=== PATIENT | male | born 1950 | race Caucasian/White ===

== ENCOUNTER 2017-03-08 19:13 | Inpatient (IN) | payer OTHER, BC, MEDICARE ==
--- NOTE | ~2017-03-08 | HP ---
History And Physical [address] [address] NAME: MARISOL ORNELAS II : 46 STATUS : ADM IN PAT#: [id number] AGE: 66 ADM/REG DATE : 03/08/17 MR#: [id number] REPORT SERV DATE: 03/09/17 DICTATED BY: SARTHAK OLIVAS DATE: 03/09/17 REPORT STATUS : Draft TRANSCRIBED BY: MODKinga DATE: 03/09/17 DATE OF ADMISSION: 03/08/2017 CHIEF COMPLAINT: A 66-year-old male presenting with bilateral diabetic foot ulcers and redness and pain in his legs. HISTORY OF PRESENT ILLNESS: The patient's history was obtained through careful interview with the patient and , coupled with review of [facility] and [facility] medical records. The patient for several years has been dealing with diabetic foot ulcers. He has had bilateral foot operations and is followed chronically by Podiatry. About 9 days ago, he had some calluses removed from ulcers on bilateral feet. But it was until this afternoon that he developed fevers, chills, nausea, and an episode of vomiting and was seems to be heat and slight redness, particularly over his right leg. He describes some right leg discomfort, aching quality and pressure-like quality, 6/10 in severity. No lightheadedness. No confusion. No palpitations. No shortness of breath. No chest pain. He claims his diabetes is under good control with dietary control only, and blood sugars always under 200. REVIEW OF SYSTEMS: Otherwise, a 14-point review of systems was obtained and was negative. PAST MEDICAL HISTORY: 1. Atrial fibrillation, followed by Dr. Velez. 2. Diabetes. 3. Colon polyps seen by Dr. Shayla Marshall. 4. Chronic kidney disease, stage III. Baseline creatinine of 1.4 to 1.7. 5. Gout. PAST SURGICAL HISTORY: 1. UPPP. 2. Fissurectomy. 3. Left shoulder surgery. 4. Oral surgery. 5. Bilateral foot surgery. ALLERGIES: NO KNOWN DRUG ALLERGIES. SOCIAL HISTORY: He is . Works for the [employer]. Lives in [facility] History And Physical [address] [address] NAME: MARISOL ORNELAS II : 46 STATUS : ADM IN PAT#: [id number] AGE: 66 ADM/REG DATE : 03/08/17 MR#: [id number] REPORT SERV DATE: 03/09/17 DICTATED BY: SARTHAK OLIVAS DATE: 03/09/17 REPORT STATUS : Draft TRANSCRIBED BY: CHEY DATE: 03/09/17 [place]. Has children, 6 grandchildren. No tobacco abuse history. No alcohol use. FAMILY HISTORY: Both mother and father from colon cancer. Father had diabetes. Three out of four of his grandparents had heart disease. CURRENT MEDICATIONS: Include allopurinol 100 mg p.o. daily, Norvasc 10 mg p.o. daily, eye drops, aspirin 81 mg p.o. daily, chlorthalidone 12.5 mg p.o. daily, TriCor 145 mg p.o. daily, magnesium, multivitamin, omeprazole 40 mg p.o. daily, Zocor 80 mg p.o. daily, sotalol 120 mg p.o. b.i.d., testosterone every month, vitamin B6, Diovan 320 mg p.o. daily, and Coumadin 4.5 mg p.o. daily. PHYSICAL EXAMINATION: VITAL SIGNS: Temperature 101.8, pulse 109, blood pressure 137/72, respiratory rate 16, and O2 saturation 94% on room air. GENERAL: A pleasant, cooperative male. No evidence of acute distress. HEENT: Pupils equal, round, and reactive to light. No conjunctival pallor. No scleral icterus. Nares are patent. Oropharynx: Clear of obstruction. Moist mucous membranes. NECK: Trachea midline. No thyromegaly. LYMPH: No cervical lymphadenopathy. No supraclavicular lymphadenopathy. No inguinal lymphadenopathy. RESPIRATORY: Clear to auscultation at bases. No wheezes, rales, or rhonchi. Normal respiratory effort. CARDIOVASCULAR: Tachycardic, regular rhythm. No murmurs, rubs, or gallops. No current extremity edema is appreciated. ABDOMEN: Soft, nontender, nondistended. Normal bowel sounds auscultated throughout. No organomegaly. DERMATOLOGICAL: The patient only has mild erythema of his right taylor and surrounding his right diabetic foot ulcer at the base of his foot but only minimal heat. No significant tenderness. No purulent drainage. No leg ulceration. The patient also has some slight cyanotic changes at the tips of his feet bilaterally. No pallor. Warm and dry extremities. PSYCHIATRIC: Normal affect. Good mood. Alert and oriented x3. LABORATORY DATA: White blood cell count 12.1, hemoglobin 17, hematocrit 52, platelets 223. Sodium 137, potassium 4.1, chloride 101, bicarb 29, BUN 24, creatinine 1.8, glucose 109. Urinalysis negative for infection. STUDIES: Chest x-ray by my own evaluation shows no acute cardiopulmonary process. ASSESSMENT AND PLAN: 1. Sepsis. Fever of 101.8, tachycardia, white blood cell count of 12.1. Check blood cultures. Placed on IV antibiotics. 2. Bilateral diabetic foot ulcer infections. Check an arterial Doppler ultrasound. Check an MRI to rule out osteomyelitis. Placed on IV vancomycin, IV Zosyn for now. No drainage from the ulcers to culture. We will obtain a Wound Care consult. Check an ESR. 3. Chronic kidney disease, stage III. 4. Diabetes. Check hemoglobin A1c. Place on sliding scale insulin. History And Physical [address] [address] NAME: MARISOL ORNELAS II : 46 STATUS : ADM IN [facility]#: [id number] AGE: 66 ADM/REG DATE : 03/08/17 MR#: [id number] REPORT SERV DATE: 03/09/17 DICTATED BY: SARTHAK OLIVAS DATE: 03/09/17 REPORT STATUS : Draft TRANSCRIBED BY: CHEY DATE: 03/09/17 5. Atrial fibrillation. Check telemetry. Check INR. The patient is on Coumadin. FELICITASL/CHEY Sarthak Olivas M.D. / [id number] CC: Ang Martell M.D. Ondrej J Lisy, M.D.
--- NOTE | ~2017-03-08 | DS ---
Discharge Summary [facility] [address] [place]. [address] NAME: MARISOL ORNELAS II : 46 STATUS : DIS IN PAT#: [id number] AGE: 66 ADM/REG DATE : 03/08/17 MR#: [id number] REPORT SERV DATE: 03/11/17 DICTATED BY: DATE: REPORT STATUS : Draft TRANSCRIBED BY: MODL DATE: 03/10/17 ADMISSION DATE: 03/08/2017 DISCHARGE DATE: 03/10/2017 [facility] CONSULTANTS: Katerin Linares D.P.M, of podiatry. DISCHARGE DIAGNOSES: 1. Bilateral lower extremity cellulitis. 2. Bilateral plantar diabetic foot ulcers with no evidence of acute infection. 3. 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 4. Demand-related ischemia - no evidence of acute myocardial infarction. 5. Paroxysmal atrial fibrillation with subtherapeutic INR at admission and discharge. 6. History of hypertension - hypotensive here, with multiple recent outpatient medication up titrations. Diuretic held at discharge, amlodipine decreased for discharge. Recommend further ambulatory blood pressure monitoring. 7. Non-insulin dependent diabetes mellitus type 2 - uncontrolled with hemoglobin A1c of 7.3. The patient states intention for improved dietary compliance at discharge. 8. Sepsis present at admission, resolved. IMAGING AND DIAGNOSTICS: Included: 1. An MRI of bilateral lower extremity showing cellulitis, but no osteomyelitis. Degenerative changes of the first metatarsophalangeal joint on the left, with some tenosynovitis of the right hallucis longus tendon. 2. PA lateral chest x-ray, negative. 3. Arterial Dopplers negative for peripheral arterial disease. PERTINENT LABORATORIES: White blood cell count at admission 12.1, 5.3 at discharge. Hemoglobin values stable. Platelets normal. INR 1.6. Creatinine at admission 1.9, 1.97 at discharge. Blood glucose values ranging from 110 to 155. Liver enzymes normal. Lactate 1.4. Urinalysis negative. Sedimentation rate 6. BNP 290. Troponin values between 0.1 and 0.11. TSH normal. Hemoglobin A1c 7.3. Blood cultures x2 no growth at the time of discharge. BRIEF HISTORY: For full details, please see the previously dictated history of present illness by Dr. Jose Daniel Badillo. This is a 66-year-old white male with known diabetic foot ulcers bilaterally, followed outpatient by Dr. Linares. He had not had any recent debridement and had not noticed any recent increase in pain or drainage, but did develop bilateral redness of the legs with an associated fever of 101.8 degrees, tachycardia, and altered mental status and weakness. His brought him to the emergency department for evaluation, where he was found to be septic from bilateral lower extremity cellulitis. He was admitted to the Hospitalist Service for further management. HOSPITAL COURSE: The patient was placed on empiric vancomycin and Zosyn. He was placed on IV fluids. Blood cultures were obtained and showed no growth during the hospitalization. Discharge Summary [place] [address] [facility] [place]. [address] NAME: MARISOL ORNELAS II : 46 STATUS : DIS IN PAT#: [id number] AGE: 66 ADM/REG DATE : 03/08/17 MR#: [id number] REPORT SERV DATE: 03/11/17 DICTATED BY: DATE: REPORT STATUS : Draft TRANSCRIBED BY: MODL DATE: 03/10/17 Wound cultures were not obtained because the patient's wounds were not draining. Sedimentation rate was negative. MRI of bilateral feet was negative for osteomyelitis. Arterial Doppler showed no evidence of significant peripheral arterial disease The patient improved dramatically by the first hospital day, on that management, with no recurrence of fevers, decrease in the erythema of both legs, and downtrend in his white blood cell count. Podiatry was consulted to see him, to determine whether any surgical debridement was needed at present, or if outpatient followup would suffice, and also to provide some input into the discharge antibiotic regimen. Dr. Linares saw the patient on 03/10/2017, and did not believe that the wounds required any additional debridement at present because they appeared clean, with no increase in drainage. Podiatry recommended outpatient antibiotics to include clindamycin and renally dosed fluoroquinolone, with outpatient followup as scheduled on 03/22/2017. Other issues managed this admission included a subtherapeutic INR. INR has been 1.6 the majority of this admission despite increasing dose of Coumadin. The patient reports that he recently has had difficulty controlling his INR and that he has vacillated between being supratherapeutic and subtherapeutic. His INR is followed at the [facility]. No changes made in his current dose of Coumadin as he will be discharged on clindamycin and a fluoroquinolone, which could increase the INR. Therefore, he will need to follow up for an outpatient INR check on 03/15/2017. The patient also reports that his blood pressure medications had been up titrated recently. Specifically, his amlodipine was recently doubled and he was placed on chlorthalidone. Here in the hospital, his systolic blood pressure typically ranged from the upper 90s to 120s at the highest. In fact, his blood pressure medications had to be held on a few occasions because of hypotension. Therefore, his diuretic has been discontinued for discharge and his amlodipine decreased back to his home dose of 5 mg. 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 There may be some component of white coat hypertension. He is not currently in the habit of checking his blood pressure at home, but ambulatory blood pressure monitoring is recommended and he is instructed to check his blood pressure daily and keep a log for his next appointment with his primary care provider within one month, for further blood pressure medication adjustments. The patient's A1c was found to be elevated this admission at 7.3, which he reports as higher than usual for him. He recently has been diet controlled, and would like to attempt that again prior to initiation of oral agents. Again, he will follow up with his primary care provider about this. DISCHARGE INSTRUCTIONS: The patient is being discharged home in the care of his supportive with no specific activity restrictions. Although, he is not able to return to work unless he can do so sitting per Podiatry. He needs to adhere to an 1800 K calorie, ADA, cardiac diet for his comorbidities, and follow up with Dr. Christiano Linares, as scheduled on Discharge Summary [address] [place]. [address] NAME: MARISOL ORNELAS ROLAN : 46 STATUS : DIS IN PAT#: [id number] AGE: 66 ADM/REG DATE : 03/08/17 MR#: [id number] REPORT SERV DATE: 03/11/17 DICTATED BY: DATE: REPORT STATUS : Draft TRANSCRIBED BY: CHEY DATE: 03/10/17 03/22/2017. He needs to follow up at the [facility] for an INR check on 03/15/2017, and also needs to see his primary care provider within the month regarding his blood pressure readings and blood pressure medications. DISCHARGE MEDICATIONS: Include: 1. Allopurinol 100 mg p.o. at bedtime. 2. Amlodipine 5 mg p.o. daily. 3. Aspirin 81 mg p.o. daily. 4. Tricor 145 mg p.o. at bedtime. 5. Magnesium oxide 400 mg p.o. at bedtime. 6. Multivitamin one tablet p.o. at bedtime. 7. Prilosec 40 mg p.o. at bedtime. 8. Simvastatin 80 mg p.o. at bedtime. 9. Sotalol 120 mg p.o. twice a day. 10.Valsartan 320 mg p.o. q.p.m. 11.Warfarin 4.5 mg p.o. q.p.m. 12.Testosterone one shot every ten days. 13.Vitamin B6 one tablet p.o. at bedtime. 14.Artificial Tears one drop in each eye as needed for dryness. 15.Levaquin 750 mg p.o. every 48 hours x5 doses and clindamycin 300 mg p.o. q.6 hours for ten days. Thirty five minutes was spent in completion of the discharge summary. FLAVIO/CHEY Abdirahman Amaro M.D. / [id number] CC: Ang Gongora M.D. C. Jason Wamack, D.P.M. Ondrej J Lisy, M.D.
[~2017-03-08 19:13] MED LIST: ASA5GR PO; B6 PO; BETAPACE80 PO; CALCIUM PO; CALTRAT600 PO; CENTRUM SILVER PO; CENTRUM TAB1 TAB PO; DIOVAN HC2 PO; JANTOVEN5 MG; LOP25 PO; MAG-SR535 MG PO; MAGNESIUM PO; NORV5 PO; PRILO PO; PRILOSEC40 MG PO; TRICOR145 PO; VITAMIN B-625 MG PO; VITC500 PO; VOLTXR100 PO; Z100 PO; ZOCOR40 PO; ZOCOR5 MG PO
[2017-03-08 20:08] LABS: BASOPHILS 0.1 %; BASOPHILS ABSOLUTE 0.01 10/3/uL (0.0-0.16); EOSINOPHILS ABSOLUTE 0.12 10/3/uL (0.0-0.53); HEMOGLOBIN 17.4 g/dL (13.6-17.8); IMMATURE GRANULOCYTES 0.3 %; IMMATURE GRANULOCYTES ABSOLUTE 0.04 10/3/uL (0.0-0.11); LYMPHOCYTES 6.4 %; LYMPHOCYTES ABSOLUTE 0.78 10/3/uL (0.67-4.30); MEAN CORPUS HGB CONC 33.3 g/dL (32.0-36.0); MEAN CORPUSCULAR HEMOGLOB 28.4 pg (26.0-34.0); MEAN PLATELET VOLUME 10.2 fL (9.2-13.0); MONOCYTES ABSOLUTE 0.85 10/3/uL (0.21-1.20); NEUTROPHILS 85.2 %; NEUTROPHILS ABSOLUTE 10.34 10/3/uL (2.02-8.40); PLATELET COUNT 223 10/3/uL (150-400); RBC DISTRIBUTION WIDTH 14.6 % (12.0-16.0); RED CELL COUNT 6.13 10/6/uL (4.7-6.1)
[2017-03-08 20:10] LABS: ER CBC TAT 0 Hrs 07 Mins; HEMATOCRIT 52.2 % (40.0-51.0); MANUAL DIFF NO %; MEAN CORPUSCULAR VOLUME 85.2 fL (80-100); WHITE BLOOD CELLS 12.1 10/3/uL (4.5-10.5)
[2017-03-08 20:22] LABS: ALBUMIN 4.3 G/DL (3.5-5.0); ALKALINE PHOSPHATASE 38 U/L (45-117); BUN (BLOOD UREA NITROGEN) 24 MG/DL (6-23); CALCIUM, SERUM 9.5 MG/DL (8.5-10.4); CHLORIDE, SERUM 101 MMOL/L (96-112); CO2 (CARBON DIOXIDE) 29 MMOL/L (24-34); CREATININE 1.86 MG/DL (0.70-1.30); GFR AFRICAN AMERICAN 42 ML/MIN (>=60); GFR NON AFRICAN AMERICAN 36 ML/MIN (>=60); GLOBULIN 4.2 G/DL (2.5-4.1); GLUCOSE, SERUM 109 MG/DL (60-99); POTASSIUM, SERUM 4.1 MMOL/L (3.5-5.3); SGOT(AST) 19 U/L (5-40); SGPT(ALT) 25 U/L (5-65); SODIUM, SERUM 137 MMOL/L (135-148); TOTAL BILIRUBIN 0.8 MG/DL (0-1.2); TOTAL PROTEIN 8.5 G/DL (6.0-8.5)
[2017-03-08 20:25] LABS: ASCORBIC ACID (UR NOT ORDER) 20 (NEG); BILIRUBIN, URINE NEGATIVE (NEG); ER URINALYSIS TAT 0 Hrs 19 Mins; KETONE, URINE NEGATIVE (NEG); LEUKOCYTE ESTERASE(NOT OR NEG (NEG); NITRITE (URINE) NEG (NEG); WBC (NOT ORDERED) (RFLEX) 1 (0-5)
[2017-03-08] MEDS ORDERED: TESTOSTERONE INJ IM (23:04)
[2017-03-08] MEDS ORDERED: PRILOSEC40 MG PO (23:04)
[2017-03-08] MEDS ORDERED: Z100 PO (23:04)
[2017-03-08] MEDS ORDERED: ZOCOR80 MG PO (23:05)
[2017-03-08] MEDS ORDERED: DIOVAN320 MG PO (23:05)
[2017-03-08] MEDS ORDERED: TRICOR145 PO (23:05)
[2017-03-08] MEDS ORDERED: NORV10 PO (23:06)
[2017-03-08] MEDS ORDERED: VITAMIN B PO (23:06)
[2017-03-08] MEDS ORDERED: TEARS PURE OPH (23:06)
[2017-03-08] MEDS ORDERED: MULTIVITAMI1 PO (23:07)
[2017-03-08] MEDS ORDERED: JANTOVEN1 MG PO (23:07)
[2017-03-08] MEDS ORDERED: ASAB PO (23:07)
[2017-03-08] MEDS ORDERED: HYGROTON 25 MG25 MG PO (23:07)
[2017-03-08] MEDS ORDERED: BETAP120 PO (23:07)
[2017-03-08] MEDS ORDERED: MAGOX4 PO (23:07)
[2017-03-08 23:41] LABS: LACTATE 1.4 MMOL/L (0.3-2.4)
[2017-03-09 03:51] LABS: BASOPHILS 0.2 %; BASOPHILS ABSOLUTE 0.02 10/3/uL (0.0-0.16); EOSINOPHILS 0.5 %; EOSINOPHILS ABSOLUTE 0.05 10/3/uL (0.0-0.53); HEMOGLOBIN 15.1 g/dL (13.6-17.8); IMMATURE GRANULOCYTES 0.4 %; IMMATURE GRANULOCYTES ABSOLUTE 0.04 10/3/uL (0.0-0.11); LYMPHOCYTES 7.8 %; LYMPHOCYTES ABSOLUTE 0.87 10/3/uL (0.67-4.30); MEAN CORPUS HGB CONC 32.9 g/dL (32.0-36.0); MEAN CORPUSCULAR HEMOGLOB 28.2 pg (26.0-34.0); MEAN CORPUSCULAR VOLUME 85.6 fL (80-100); MEAN PLATELET VOLUME 9.9 fL (9.2-13.0); MONOCYTES 6.4 %; MONOCYTES ABSOLUTE 0.71 10/3/uL (0.21-1.20); NEUTROPHILS 84.7 %; NEUTROPHILS ABSOLUTE 9.41 10/3/uL (2.02-8.40); PLATELET COUNT 205 10/3/uL (150-400); RBC DISTRIBUTION WIDTH 14.6 % (12.0-16.0); RED CELL COUNT 5.36 10/6/uL (4.7-6.1); WHITE BLOOD CELLS 11.1 10/3/uL (4.5-10.5)
[2017-03-09 03:52] LABS: HEMATOCRIT 45.9 % (40.0-51.0); MANUAL DIFF NO %
[2017-03-09 03:58] LABS: PARTIAL THROMBO TIME 37.4 SEC (22.5-37.2)
[2017-03-09 03:59] LABS: INTERNATIONAL NORMAL RATI 1.6 UNITS (-); PROTIME (NOT ORD) 19.1 SEC (12.0-14.5)
[2017-03-09 04:22] LABS: ALBUMIN 3.5 G/DL (3.5-5.0); ALKALINE PHOSPHATASE 32 U/L (45-117); BUN (BLOOD UREA NITROGEN) 26 MG/DL (6-23); CHLORIDE, SERUM 106 MMOL/L (96-112); CO2 (CARBON DIOXIDE) 25 MMOL/L (24-34); CREATININE 1.91 MG/DL (0.70-1.30); GFR AFRICAN AMERICAN 41 ML/MIN (>=60); GFR NON AFRICAN AMERICAN 35 ML/MIN (>=60); GLOBULIN 3.5 G/DL (2.5-4.1); GLUCOSE, SERUM 111 MG/DL (60-99); SGOT(AST) 15 U/L (5-40); SGPT(ALT) 20 U/L (5-65); SODIUM, SERUM 141 MMOL/L (135-148); TOTAL BILIRUBIN 0.8 MG/DL (0-1.2); ULTRASENSITIVE TSH 0.965 MCIU/ML (0.358-3.740)
[2017-03-09 04:23] LABS: CALCIUM, SERUM 8.4 MG/DL (8.5-10.4)
[2017-03-09 04:24] LABS: TROPONIN I 0.12 NG/ML (<0.05)
[2017-03-09 05:32] LABS: SED RATE 6 MM/HR (0-15)
[2017-03-09 09:52] LABS: GLYCOHEMOGLOBIN (HbA1c) 7.3 % (4.7-6.1)
[2017-03-10 03:52] LABS: BASOPHILS 0.2 %; BASOPHILS ABSOLUTE 0.01 10/3/uL (0.0-0.16); EOSINOPHILS 3.6 %; EOSINOPHILS ABSOLUTE 0.19 10/3/uL (0.0-0.53); HEMATOCRIT 46.5 % (40.0-51.0); HEMOGLOBIN 15.3 g/dL (13.6-17.8); IMMATURE GRANULOCYTES 0.4 %; IMMATURE GRANULOCYTES ABSOLUTE 0.02 10/3/uL (0.0-0.11); LYMPHOCYTES 28.8 %; LYMPHOCYTES ABSOLUTE 1.53 10/3/uL (0.67-4.30); MEAN CORPUS HGB CONC 32.9 g/dL (32.0-36.0); MEAN CORPUSCULAR HEMOGLOB 28.4 pg (26.0-34.0); MEAN CORPUSCULAR VOLUME 86.3 fL (80-100); MEAN PLATELET VOLUME 9.6 fL (9.2-13.0); MONOCYTES 12.6 %; MONOCYTES ABSOLUTE 0.67 10/3/uL (0.21-1.20); NEUTROPHILS 54.4 %; NEUTROPHILS ABSOLUTE 2.89 10/3/uL (2.02-8.40); PLATELET COUNT 184 10/3/uL (150-400); RBC DISTRIBUTION WIDTH 14.8 % (12.0-16.0); RED CELL COUNT 5.39 10/6/uL (4.7-6.1)
[2017-03-10 04:05] LABS: MANUAL DIFF NO %; WHITE BLOOD CELLS 5.3 10/3/uL (4.5-10.5)
[2017-03-10 04:06] LABS: ALBUMIN 3.3 G/DL (3.5-5.0); CALCIUM, SERUM 9.1 MG/DL (8.5-10.4); CHLORIDE, SERUM 106 MMOL/L (96-112); CO2 (CARBON DIOXIDE) 27 MMOL/L (24-34); CREATININE 1.97 MG/DL (0.70-1.30); GFR AFRICAN AMERICAN 39 ML/MIN (>=60); GFR NON AFRICAN AMERICAN 34 ML/MIN (>=60); GLUCOSE, SERUM 113 MG/DL (60-99); INTERNATIONAL NORMAL RATI 1.6 UNITS (-); POTASSIUM, SERUM 4.1 MMOL/L (3.5-5.3); PROTIME (NOT ORD) 19.2 SEC (12.0-14.5); SODIUM, SERUM 140 MMOL/L (135-148)
[2017-03-10 04:07] LABS: BUN (BLOOD UREA NITROGEN) 35 MG/DL (6-23)
[2017-03-10] MEDS ORDERED: NORV5 PO (14:14)
[2017-03-10] MEDS ORDERED: IODOSORB TOP (14:15)
[2017-03-10] MEDS ORDERED: CLEOCIN300 MG PO (14:22)
[2017-03-10] MEDS ORDERED: LEVAQUIN750 MG PO (14:23)
== END 2017-03-10 17:45 | disposition home or self-care (01) | DRG 872 ==
LOC: ER 19:13 → 7NO 23:19
PROVIDERS: Emergency Medicine; Hospitalist; Nurse Practitioner Acute Care
DX: A41.9 Sepsis, unspecified organism (principal); I24.8 Other forms of acute ischemic heart disease; E11.621 Type 2 diabetes mellitus with foot ulcer; L03.116 Cellulitis of left lower limb; L03.115 Cellulitis of right lower limb; Z86.010 Personal history of colon polyps; N18.3 Chronic kidney disease, stage 3 (moderate); I48.0 Paroxysmal atrial fibrillation; E11.65 Type 2 diabetes mellitus with hyperglycemia; Z79.01 Long term (current) use of anticoagulants; Z79.82 Long term (current) use of aspirin
CPT/HCPCS: 71020; 73718-50; 80053; 80069; 81001; 82962; 83036; 83605; 83735; 83880; 84443; 84484; 85025; 85610; 85652; 85730; 87040; 93923; 96374; 99285; A9270-GY; J2543; J3370